=== PATIENT | female | born 1970 | race Caucasian/White ===

== ENCOUNTER → 2017-12-10 16:48 | Outpatient (REF) | payer OTHER, SELFPAY | LOC: NCHCN 16:48 | PROVIDERS: PCP Nurse Practitioner Family; Visit Provider Physician Assistant Medical | DX: R35.0 Frequency of micturition (principal) | CPT/HCPCS: 87086 ==

== ENCOUNTER 2019-02-09 17:03 | Outpatient (REF) | payer OTHER, SELFPAY | END 2019-02-09 17:23 | LOC: NCHCN 17:03 | PROVIDERS: PCP Nurse Practitioner Family; Visit Provider Nurse Practitioner Family | DX: R35.0 Frequency of micturition (principal) | CPT/HCPCS: 87086 ==

== ENCOUNTER 2019-10-20 02:18 | Outpatient (CLI) | payer OTHER, SELFPAY ==
--- NOTE | 2019-10-20 16:03 | DI.MAMMO_ITS ---
EXAM: MG MAMMO SCREENING CLINICAL HISTORY: SCREENING, [facility] Z00.00 TECHNIQUE: Bilateral full field digital CC and MLO mammographic images were obtained with 3D tomosyn thesis and utilizing computer aided detection (CAD). COMPARISON: Available for comparison. FINDINGS: Masses/Architectural Distortion: None seen. Microcalcifications: No suspicious pleomorphic-type are seen. Skin Thickening/Nipple Retraction: None. IMPRESSION: 1. No significant interval change with no specific features of malignancy noted. 2. Unless there is more urgent need, screening mammography is recommended, as per [employer] guidelines. BI-RADS Category 1 - Negative Breast Density - Category B - Scattered areas of fibroglandular density A negative radiographic report should not delay biopsy if a dominant or clinically suspicious mass is present. Up to ten percent of cancers are not identified on mammography. A negative report may reinforce clinical impression. Adenosis and dense breasts may obscure an underlying neoplasm. False positive reports average 6 to 10%. Patient will receive a letter notifying them of these results.
== END 2019-10-20 02:38 ==
PROVIDERS: PCP Nurse Practitioner Family; Visit Provider Nurse Practitioner Family
DX: Z00.00 Encounter for general adult medical examination without abnormal findings (principal); Z12.31 Encounter for screening mammogram for malignant neoplasm of breast
CPT/HCPCS: 77063; 77067

== ENCOUNTER 2019-12-14 17:23 | Outpatient (REF) | payer OTHER, SELFPAY ==
[2019-12-14 19:14] LABS: Anion Gap 9.8 mmol/L (3-11); BUN 19 mg/dL (7-18); CO2 27.2 mmol/L (21.0-32.0); CREATININE 1.05 mg/dL (0.55-1.02); Calcium 8.7 mg/dL (8.5-10.1); Chloride 101 mmol/L (98-107); Estimated GFR 55.48 (mL/min/1.73m2); Glucose 119 mg/dL (74-106); Potassium 4.6 mmol/L (3.5-5.1); Sodium 138 mmol/L (136-145)
== END 2019-12-14 17:43 ==
LOC: NCHCN 17:23
PROVIDERS: PCP Nurse Practitioner Family; Visit Provider Nurse Practitioner Family
DX: I10 Essential (primary) hypertension (principal); Z79.899 Other long term (current) drug therapy
CPT/HCPCS: 80048

== ENCOUNTER 2020-02-07 12:56 | Day surgery (SDC) | payer OTHER, SELFPAY ==
--- NOTE | 2020-02-07 06:59 | W.COLOREPORT ---
Date of service: 02/07/20 Time of Service: 14:15 Colonoscopy Report Date of procedure: 02/07/20 Pre-op diagnosis general: Colon Cancer Screening Post-op diagnosis procedure note: same Procedure: Colonoscopy Surgeon: Regina Funk Anesthesia proc note operative: other (General/ASA 2/Salvador Vidal, [facility]) Estimated blood loss (mL): 0 Pathology: none sent Complications: None Disposition: same day Indications: The patient is here for Colonoscopy pre-op. Her last screening was 20+ years ago. She has no family history of colon cancer. She has not had any bowel habit changes. -Discussed colonoscopy bowel prep as well as the procedure. Discussed possible complications of the procedure to include bleeding, pain, perforation, missed small lesion/polyp, sore throat, aspiration and adverse reaction to the medications. Questions were answered to patient?s satisfaction. No guarantees were implied or given. Prep: Miralax/Dulcolax Procedure Start Time: 14:15 Procedure End Time: 14:35 Retraction Time: 12 minutes Findings: Normal colon Procedure Description: After informed consent was obtained the patient was taken to the procedure room and placed in a left decubitous position. Monitors were applied and a time out was done. The patients name, date of , procedure, allergies to medications and metal in their body was reviewed. The patient was then sedated. Once sedated and comfortable a rectal exam was done. External exam was normal. Internal exam revealed a normal sphincter tone and no palpable masses. The scope was then introduced and retro-flexed. No internal hemorrhoids were identified. The scope was then advanced to the cecum without difficulty. The ileocecal valve and appendiceal orifice were identified. The prep was adequate. The scope was then slowly retracted over 12 minutes back into the rectum. There were no polyps or diverticula noted. The scope was removed and the patient was woken up and taken back to Same day surgery in stable condition. The patient tolerated the procedure well and there were no immediate complications. Follow up: The patient should follow up in 10 years unless they develop changes in bowel habits or other new gastrointestinal complaints.
--- NOTE | 2020-02-07 07:00 | W.PM.DSUDISC ---
Discharge Plan Disposition Patient Disposition: HOME Condition: Good Discharge Details Reason For Visit: Colonoscopy Attending Provider: Regina Funk Primary Care Provider: Bonnie Jamil Home Meds and New Rx's Prescriptions: Continued lisinopril 10 mg tablet 10 mg PO DAILY RF: 0 multivitamin [Daily Multi-Vitamin] Tablet 1 tab PO DAILY RF: 0 naproxen sodium [Aleve] 220 mg capsule 220 mg PO BID PRNRF: 0 ascorbic acid (vitamin C) 500 mg capsule 500 mg PO DAILY RF: 0 sqlz-cegizr-tlpspndz-D3-C-Mn 500-400-667 mg-mg-unit capsule 1 cap PO DAILY RF: 0 CBD cream 200 mg topical RF: 0 citalopram 10 mg tablet 20 mg PO DAILY RF: 0 estradiol [Vagifem] 10 mcg tablet 10 mcg VG DAILY RF: 0 omeprazole 20 mg capsule,delayed release(DR/EC) 20 mg PO BID RF: 0 Discontinued polyethylene glycol 3350 17 gram/dose powder 238 g PO ONCE Qty: 238 RF: 0 bisacodyl [Dulcolax (bisacodyl)] 5 mg tablet,delayed release (DR/EC) 5 mg PO ONCE Qty: 4 RF: 0 Discharge Instructions Additional Instructions: Findings: normal Follow up: 10 years Please call if you develop: fevers >101.5 Nausea or Vomiting Abdominal pain that is not transient DAY SURGERY UNIT POST ENDOSCOPY INSTRUCTIONS 1. Because there will be medication in your system for the next 24 hours, you may feel a little sleepy. Your coordination will be affected. Therefore: a. Do not drive or operate dangerous equipment for 24 hours. b. Do not drink alcohol beverages for 24 hours (not even beer). c. Plan to go home and rest for the day. 2. Generally there are no restrictions on your activity after a day or so has gone by, but you may feel a bit fatigued for a few days. 3 After you arrive home you may have a light meal and return to a normal diet as you can tolerate it without feeling sick to your stomach. 4. After surgery, you may feel pain or discomfort. This should be only transient, but if it persists please contact your doctor. 5. If there are any questions regarding the findings of your procedure, please feel free to contact your doctor. 6. If you are unable to contact your doctor with a problem, contact the hospital at [phone]. 7. Continue all your regular medications unless directed otherwise. I understand the above instructions and have no questions. Signature of Patient or Responsible Adult Escort Date/Time Name of Responsible Adult Escort Signature of Nurse Date/Time Activity:: Activity as Tolerated Diet:: As Tolerated Discharge Orders Discharge Orders: Discharge Order (Routine); Ordered 02/07/20 Ordered By: Regina Funk
[2020-02-07 13:24] VITALS: BP 124/84; PULSE 82; RESP 16; TEMP 36.2; O2SAT 98
[2020-02-07] MEDS: Lactated Ringers 1,000 ML 80 ML IV (13:36)
[2020-02-07 15:20] VITALS: BP 126/89; PULSE 67; RESP 16; TEMP 36.1; O2SAT 99
== END 2020-02-07 15:30 | disposition home or self-care (01) ==
PROVIDERS: PCP Nurse Practitioner Family; Visit Provider Surgery
PROC: 0DJD8ZZ Inspection of Lower Intestinal Tract, Via Natural or Artificial Opening Endoscopic (ICD-10-PCS; CPT 45378; principal; 2020-02-07 13:00)
DX: Z12.11 Encounter for screening for malignant neoplasm of colon (principal)
CPT/HCPCS: 45378; J2001

== ENCOUNTER 2020-10-04 16:19 | Outpatient (REF) | payer OTHER, SELFPAY ==
[2020-10-04 13:59] LABS: HCT 37.6 % (36.0-46.0); HGB 12.6 g/dL (11.2-15.7); MCH 29.9 pg (27.0-33.0); MCHC 33.5 % (32.0-36.0); MCV 89.3 fL (80-95); MPV 11.4 fL (8.0-11.0); Platelet Count 199 10^3/uL (130-400); RBC 4.21 10^6/uL (3.93-5.22); RDW 12.1 % (11.7-14.6); RDW-SD 39.8 fL; WBC 3.77 10^3/uL (4.4-10.8)
[2020-10-04 14:29] LABS: Anion Gap 9.7 mmol/L (3-11); BUN 20 mg/dL (7-18); CO2 27.3 mmol/L (21.0-32.0); CREATININE 0.8 mg/dL (0.55-1.02); Calcium 9.1 mg/dL (8.5-10.1); Calculated LDL 177 mg/dL (<100); Chloride 104 mmol/L (98-107); Cholesterol 261 mg/dL (<200); Glucose 96 mg/dL (74-106); HDL Cholesterol 69 mg/dL (40-60); Potassium 4.3 mmol/L (3.5-5.1); Sodium 141 mmol/L (136-145); TSH (W/Ref FT4) 1.43 uIU/mL (0.36-3.74); Triglyceride 75 mg/dL (<150)
[2020-10-05 01:16] LABS: Vitamin D 25 Total 85.3 ng/mL (30-100)
== END 2020-10-04 16:20 | disposition home or self-care (01) ==
LOC: NCHCN 16:19
PROVIDERS: PCP Nurse Practitioner Family; Visit Provider Nurse Practitioner Family
DX: Z00.00 Encounter for general adult medical examination without abnormal findings (principal); I10 Essential (primary) hypertension; R23.8 Other skin changes; F32.9 Major depressive disorder, single episode, unspecified
CPT/HCPCS: 80048; 80061; 82306; 85027; 84443

== ENCOUNTER 2020-10-25 14:47 | Outpatient (REF) | payer OTHER, SELFPAY ==
[2020-10-25 14:50] LABS: Abs Immature Grans 0.01 10^3/uL (0.0-0.06); Absolute Basophil Count 0.03 10^3/uL (0.0-0.2); Absolute Eosinophil Count 0.04 10^3/uL (0.0-0.7); Absolute Lymphocyte Count 1.52 10^3/uL (1.2-3.4); Absolute Monocyte Count 0.39 10^3/uL (0.1-0.8); Basophils % 0.7; Eosinophils % 0.9; HGB 12.9 g/dL (11.2-15.7); Immature Grans % 0.2; Lymphocytes % 35.4; MCH 30.1 pg (27.0-33.0); MCHC 33.1 % (32.0-36.0); MCV 91.1 fL (80-95); MPV 11.2 fL (8.0-11.0); Monocytes % 9.1; Neutrophils % 53.7; Platelet Count 196 10^3/uL (130-400); RBC 4.28 10^6/uL (3.93-5.22); RDW 12.2 % (11.7-14.6); RDW-SD 40.6 fL; WBC 4.29 10^3/uL (4.4-10.8)
== END 2020-10-25 14:48 | disposition home or self-care (01) ==
LOC: NCHCN 14:47
PROVIDERS: PCP Nurse Practitioner Family; Visit Provider Nurse Practitioner Family
DX: R89.8 Other abnormal findings in specimens from other organs, systems and tissues (principal)
CPT/HCPCS: 85027; 85007

== ENCOUNTER 2021-03-26 19:19 | Outpatient (REF) | payer OTHER, SELFPAY ==
[2021-03-28 22:14] LABS: COVID-19 RT-PCR UVMMC Result Positive (Negative)
== END 2021-03-26 19:20 | disposition home or self-care (01) ==
LOC: NCHCN 19:19
PROVIDERS: PCP Nurse Practitioner Family; Visit Provider Nurse Practitioner Family
DX: Z20.822 Contact with and (suspected) exposure to COVID-19 (principal); R05.8 Other specified cough
CPT/HCPCS: U0003

== ENCOUNTER → 2021-08-28 00:15 | Outpatient (CLI) | payer OTHER, SELFPAY ==
--- NOTE | 2021-08-28 09:30 | DI.RAD_ITS ---
Exam(s) XR WRIST RT COMPLETE EXAM: XR WRIST RT COMPLETE CLINICAL HISTORY: DAILY JOINT PAIN, M25.50, WORSE IN A.M.; FH RA, BORDERLINE RISK. TECHNIQUE: 2D digital imaging was performed. COMPARISON: CR XR HAND LT COMPLETE from 08/28/2021 CR XR WRIST LT COMPLETE from 08/28/2021 FINDINGS: 3 views No evidence of fracture or carpal dislocation. Scaphoid and scapholunate distance appear unremarkabl e. No significant ulnar variance. Bone density normal. No osseous lesions nor erosions. No obviou s degenerative changes. IMPRESSION: No significant radiographic findings. DATA REPOSITORY: RADIATION DOSE DELIVERED:
--- NOTE | 2021-08-28 09:30 | DI.RAD_ITS ---
Exam(s) XR HAND RT COMPLETE EXAM: XR HAND RT COMPLETE CLINICAL HISTORY: DAILY JOINT PAIN, M25.50, WORSE IN A.M.; FH RA, BORDERLINE RISK. TECHNIQUE: 2D digital imaging was performed. COMPARISON: CR XR HAND LT COMPLETE from 08/28/2021 FINDINGS: 3 views No evidence of fracture nor dislocation. Radiopaque. Lesions nor erosions. Bone density is age-ezequiel ropriate IMPRESSION: No significant radiographic findings. DATA REPOSITORY: RADIATION DOSE DELIVERED:
--- NOTE | 2021-08-28 09:30 | DI.RAD_ITS ---
Exam(s) XR HAND LT COMPLETE EXAM: XR HAND LT COMPLETE CLINICAL HISTORY: DAILY JOINT PAIN, M25.50, WORSE IN A.M.; FH RA, BORDERLINE RISK. TECHNIQUE: 2D digital imaging was performed. COMPARISON: No exams were available for comparison FINDINGS: 3 views No evidence of fracture or dislocation. No osseous lesions nor erosions. There is developmental fusion at the level of the distal carpal row between the capitate and trapezoi d bones. IMPRESSION: DATA REPOSITORY: RADIATION DOSE DELIVERED:
--- NOTE | 2021-08-28 09:30 | DI.RAD_ITS ---
Exam(s) XR WRIST LT COMPLETE EXAM: XR WRIST LT COMPLETE CLINICAL HISTORY: DAILY JOINT PAIN, M25.50, WORSE IN A.M.; FH RA, BORDERLINE RISK. TECHNIQUE: 2D digital imaging was performed. COMPARISON: CR XR HAND RT COMPLETE from 08/28/2021 FINDINGS: 3 views No evidence of fracture nor dislocation. No significant ulnar variance. Scaphoid appears unremarkab le. No widening of the scapholunate distance. Small benign cyst noted in the capitate. There appea rs to be developmental fusion of the trapezoid and capitate. No other interosseous fusion evident. IMPRESSION: There is developmental fusion of the capitate and trapezoid bones of the distal carpal row. No other fusions evident. No obvious degenerative changes nor erosions. DATA REPOSITORY: RADIATION DOSE DELIVERED:
== END ==
PROVIDERS: PCP Nurse Practitioner Family; Visit Provider Nurse Practitioner Family
DX: M25.531 Pain in right wrist (principal); M25.532 Pain in left wrist; M24.632 Ankylosis, left wrist; M79.641 Pain in right hand; M79.642 Pain in left hand
CPT/HCPCS: 73110; 73130

== ENCOUNTER 2021-08-28 19:45 | Outpatient (REF) | payer OTHER, SELFPAY ==
[2021-08-28 17:36] LABS: Abs Immature Grans 0.01 10^3/uL (0.0-0.06); Absolute Basophil Count 0.02 10^3/uL (0.0-0.2); Absolute Eosinophil Count 0.05 10^3/uL (0.0-0.7); Absolute Lymphocyte Count 1.57 10^3/uL (1.2-3.4); Absolute Neutrophil Count 1.82 10^3/uL (1.2-6.7); Basophils % 0.5; Eosinophils % 1.3; HCT 39.3 % (36.0-46.0); HGB 12.7 g/dL (11.2-15.7); Immature Grans % 0.3; Lymphocytes % 41.6; MCHC 32.3 % (32.0-36.0); MCV 93 fL (80-95); MPV 11.3 fL (8.0-11.0); Neutrophils % 48.3; Platelet Count 206 10^3/uL (130-400); RBC 4.24 10^6/uL (3.93-5.22); RDW 12.1 % (11.7-14.6); RDW-SD 41.5 fL; WBC 3.77 10^3/uL (4.4-10.8)
[2021-08-28 17:39] LABS: ESR 7 mm/hr (0-30)
[2021-08-28 20:30] LABS: Anion Gap 10.2 mmol/L (3-11); BUN 16 mg/dL (7-18); CO2 26.8 mmol/L (21.0-32.0); CREATININE 0.8 mg/dL (0.55-1.02); Calcium 8.7 mg/dL (8.5-10.1); Calculated LDL 169 mg/dL (<100); Chloride 104 mmol/L (98-107); Cholesterol 256 mg/dL (<200); Glucose 93 mg/dL (74-106); HDL Cholesterol 69 mg/dL (40-60); Potassium 4.2 mmol/L (3.5-5.1); Sodium 141 mmol/L (136-145); Triglyceride 94 mg/dL (<150)
[2021-08-28 20:51] LABS: C-Reactive Protein 0.11 mg/dL (0.0-0.3)
[2021-08-29 17:24] LABS: Rheumatoid Factor <8.6 IU/mL (<12.0)
[2021-08-30 09:11] LABS: Cyclic Citrullinated Peptide <2.5 U/mL (<5.0)
[2021-08-30 12:00] LABS: ANCA Interpretation Negative (Negative)
[2021-08-30 12:10] LABS: ANA Interpretation Positive (Negative); ANA Titer Pattern 1:160 Speckled
== END 2021-08-28 19:46 | disposition home or self-care (01) ==
LOC: NCHCN 19:45
PROVIDERS: PCP Nurse Practitioner Family; Visit Provider Nurse Practitioner Family
DX: Z00.00 Encounter for general adult medical examination without abnormal findings (principal); F32.9 Major depressive disorder, single episode, unspecified; I10 Essential (primary) hypertension; K21.9 Gastro-esophageal reflux disease without esophagitis; M25.59 Pain in other specified joint
CPT/HCPCS: 80048; 80061; 85652; 86200; 86255; 85025; 86038; 86140; 86431

== ENCOUNTER → 2021-10-26 00:02 | Outpatient (CLI) | payer OTHER, SELFPAY ==
--- NOTE | 2021-10-26 | DI.MAMMO_ITS ---
Exam(s) MAMMO SCREENING EXAM: MAMMO SCREENING CLINICAL HISTORY: SCREENING FOR BREAST CA, Z12.39 TECHNIQUE: Mammograms were interpreted according to the usual protocol including computer analysis w [employer] CAD system, tomosynthesis and C-view imaging. COMPARISON: 2011 through 2019 FINDINGS: The breasts are composed of scattered fibroglandular densities, Breast Density category B. No suspicious masses or suspicious microcalcifications are seen. No skin thickening or abnormal axillary lymph nodes are seen. There has been no significant change from prior exams. IMPRESSION: BI-RADS Category 1, Negative mammogram Yearly screening mammography is recommended. Breast Density - Category B, scattered fibroglandular densities. A negative radiographic report should not delay biopsy if a dominant or clinically suspicious mass is present. Up to ten percent of cancers are not identified on mammography. A negative report may reinforce clinical impression. Adenosis and dense breasts may obscure an underlying neoplasm. False positive reports average 6 to 10%. Patient will receive a letter notifying them of these results.
== END ==
PROVIDERS: PCP Nurse Practitioner Family; Visit Provider Nurse Practitioner Family
DX: Z12.31 Encounter for screening mammogram for malignant neoplasm of breast (principal)
CPT/HCPCS: 77063; 77067

== ENCOUNTER 2022-02-26 15:19 | Outpatient (REF) | payer OTHER, SELFPAY ==
[2022-02-26 15:12] LABS: ESR 19 mm/hr (0-30)
[2022-02-26 15:31] LABS: Cholesterol 255 mg/dL (<200)
[2022-02-26 15:35] LABS: C-Reactive Protein 1.29 mg/dL (0.0-0.3)
[2022-02-27 09:06] LABS: Calculated LDL 170 mg/dL (<100); HDL Cholesterol 66 mg/dL (40-60); Triglyceride 97 mg/dL (<150)
== END 2022-02-26 15:20 | disposition home or self-care (01) ==
LOC: NCHCN 15:19
PROVIDERS: PCP Nurse Practitioner Family; Visit Provider Nurse Practitioner Family
DX: E78.9 Disorder of lipoprotein metabolism, unspecified (principal); M25.59 Pain in other specified joint
CPT/HCPCS: 80061; 85652; 82465; 86140

== ENCOUNTER 2022-08-13 12:50 | Outpatient (REF) | payer OTHER, SELFPAY ==
[2022-08-13 15:34] LABS: Hemoglobin A1C 5.7 % (<5.7)
[2022-08-13 16:08] LABS: Vitamin D 25 Total 86.7 ng/mL (30-100)
[2022-08-13 16:14] LABS: TSH 1.26 uIU/mL (0.36-3.74); Vitamin B12 777 pg/mL (193-986)
== END 2022-08-13 12:51 | disposition home or self-care (01) ==
LOC: NCHCN 12:50
PROVIDERS: PCP Nurse Practitioner Family; Visit Provider Nurse Practitioner Family
DX: R53.83 Other fatigue (principal); R89.9 Unspecified abnormal finding in specimens from other organs, systems and tissues; I10 Essential (primary) hypertension; Z79.899 Other long term (current) drug therapy
CPT/HCPCS: 82306; 82607; 83036; 84443

== ENCOUNTER 2022-08-13 12:55 | Outpatient (CLI) | payer OTHER, SELFPAY ==
--- NOTE | 2022-08-13 | DI.RAD_ITS ---
Exam(s) XR KNEE LT 3V AP,LAT,THALIA EXAM: XR KNEE LT 3V AP,LAT,THALIA CLINICAL HISTORY: LT KNEE PERSISTENT POSTERIOR PAIN, M25.562, S/P INJURY LAST NOVEMBER. TECHNIQUE: 2D digital imaging was performed of the left knee. Three images were obtained. AP, late ral and PA tunnel views were obtained. COMPARISON: No exams were available for comparison FINDINGS: BONES: No acute fracture is present. No bony destructive lesion is seen. There is an enthesophyte at the superior patella. JOINTS: The knee is normally aligned. No joint effusion is seen. SOFT TISSUE: Normal. IMPRESSION: Normal radiographs of the left knee. DATA REPOSITORY: RADIATION DOSE DELIVERED:
== END 2022-08-13 13:15 ==
PROVIDERS: PCP Nurse Practitioner Family; Visit Provider Nurse Practitioner Family
DX: M25.562 Pain in left knee (principal)
CPT/HCPCS: 73562

== ENCOUNTER 2023-03-12 10:16 | Outpatient (REF) | payer OTHER, SELFPAY ==
--- OUTSIDE RECORDS SUMMARY | 2023-03-12 10:18 | XMS_ITS | Patient Health Record ---
Author Name Unknown [facility] Address [address] [place] [address] Care Team Providers Care Visual Education Director Name Role Phone ALEKSANDRA HERNANDEZ Primary Care Provider Unavailabl e ALLERGIES Allergen (clinical drug ingredient) Drug/Non Drug Allergy documented on EMR Reaction Allergy Type Onset Date Status Substance with sulfonamide structure and antibacterial mechanism of action (substance) Sulfa (uncoded) hives Allergy Active drospirenone / ethinyl estradiol RAJ Unknown Drug Allergy Active REASON FOR REFERRAL No Information MEDICATIONS Medication SIG (Take, Route, Frequency, Duration) Notes Start Date End Date Status Elderberry 575 MG/5ML as directed Orally Active Diclofenac Sodium 75 MG 1 tablet with food or milk Orally Twice a day for 30 day(s) Active Glucosamine Chond Complex/MSM - as directed Orally Active Triamcinolone Acetonide 0.1 % 1 application Externally Twice a day Active Aleve 220 MG 1 tablet with food or milk as needed Orally every 12 hrs Active -CIPRO 250 mg 1 tab Oral bid for 7 day(s) STOP*please review for potential _update for e-prescription and drug interaction check* 06/05/2007 Not-Taking MULTIVITAMIN Multiple Vitamins 1 cap(s) orally once a day for 30 day(s) Active Omeprazole 20 MG 1 capsule 30 minutes before morning meal Orally Once a day for 30 day(s) Active Citalopram Hydrobromide 10 MG 1 tablet Orally Once a day for 30 day(s) Active -OTC, HERBALS Varies Per patient CBD CREAM 3 x a day Active Vagifem 10 MCG 1 tablet Vaginal Two times a Week for 30 day(s) Active IMMUNIZATIONS Vaccine Route Administration Date Status Comme nts Td TETANUS DIPTHERIA ADULT NON-STATE Unknown 10/04/1994 Administered [place] includes admin [id number] Unknown 10/04/1994 Adminis tered negative SOCIAL HISTORY Tobacco Use: Social History Observation Description Date Details (start date - stop date) Never Smoker NA - NA Sex Assigned At : Social History Observation Description Sex Assigned At Unknown SMOKING Question Answer Notes Are you a: nonsmoker PLAN OF TREATMENT No Information Insurance Providers Payer Name Payer Address Payer Phone Subscriber Number Group Number Insured Name Patient Relationship to Insured Coverage Start Date Coverage End Date [employer] [facility] [address] [place], [place] [phone] [id number] NOEMI HACKETT Self - patient is the insured [place] [address] NOEMI HACKETT Self - patient is the insured MEDICATIONS ADMINISTERED Medication Instructions Date of Administration Dosage Notes N.CL,allergy>1 (46096) 09/17/2005 N.CL,allergy>1 (33643) 09/25/2005 .30 mL MEDICAL (GENERAL) HISTORY Medical History History ICD Code depression cat scratch fever - 02/22 cis form signed 06/03/07 TA CIS 05/29 - DPR Back pain M54.9 Urinary incontinence R32 Vaginal dryness N89.8 Fatigue R53.83 Raynaud disease I73.00 Shoulder pain M25.519 Seborrheic dermatitis L21.9 Bartonellosis, 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
[2023-03-12 19:09] LABS: Calculated LDL 149 mg/dL (<100); Cholesterol 240 mg/dL (<200); HDL Cholesterol 73 mg/dL (40-60); Triglyceride 93 mg/dL (<150)
== END 2023-03-12 10:17 | disposition home or self-care (01) ==
LOC: NCHCN 10:16
PROVIDERS: PCP Nurse Practitioner Family; Visit Provider Nurse Practitioner Family
DX: Z13.220 Encounter for screening for lipoid disorders (principal)
CPT/HCPCS: 80061

== ENCOUNTER → 2023-09-08 02:10 | Outpatient (CLI) | payer OTHER, SELFPAY ==
--- NOTE | 2023-09-08 | DI.MAMMO_ITS ---
Exam(s) MAMMO SCREENING EXAM: MAMMO SCREENING CLINICAL HISTORY: SCREENING, Z12.31. TECHNIQUE: Bilateral full field digital CC and MLO mammographic images were obtained with 3D tomosyn thesis and utilizing computer aided detection (CAD). COMPARISON: Prior mammograms were reviewed. FINDINGS: There has been no significant change in the appearance and distribution of the fibroglandular tissue. There are no new spiculated masses nor malignant appearing microcalcification groups. There is no significant architectural distortion nor skin thickening-retraction. IMPRESSION: No radiographic evidence of malignancy. BI-RADS Category 1 - Negative Breast Density - Category B - Scattered areas of fibroglandular density Breast density Category C or D implies that the patient has dense breast tissue. Dense breast tissue can make it harder to find cancer on a mammogram. Dense breast tissue is also associated with an incr eased risk of breast cancer. This information about the result of the mammogram report was provided to the patient to raise their awareness. Use this report when you speak with the patient about their risks for breast cancer, which includes their family history. At that time, you may recommend additional screening tests (Ultrasoun d or MRI) as these tests may add significant information. A negative radiographic report should not delay biopsy if a dominant or clinically suspicious mass is present. Up to ten percent of cancers are not identified on mammography. A negative report may reinforce clinical impression. Adenosis and dense breasts may obscure an underlying neoplasm. False positive reports average 6 to 10%. Patient will receive a letter notifying them of these results.
== END ==
PROVIDERS: PCP Nurse Practitioner Family; Visit Provider Nurse Practitioner Family
DX: Z12.31 Encounter for screening mammogram for malignant neoplasm of breast (principal)
CPT/HCPCS: 77063; 77067

== ENCOUNTER 2024-02-09 16:05 | Outpatient (CLI) | payer OTHER, SELFPAY ==
--- NOTE | 2024-02-09 | DI.RAD_ITS ---
Exam(s) XR FOOT RT COMPLETE EXAM: XR FOOT RT COMPLETE CLINICAL HISTORY: M79.671 Pain in rt foot. TECHNIQUE: 2D digital imaging was performed of the right foot. Three images were obtained. AP, obl ique and lateral views were obtained. COMPARISON: No exams were available for comparison FINDINGS: BONES: No acute fracture is present. No bony destructive lesion is seen. There is an enthesophyte at the posterior calcaneus. JOINTS: No dislocation present. Joint spaces are well maintained. SOFT TISSUE: Normal. IMPRESSION: No acute abnormality. DATA REPOSITORY: RADIATION DOSE DELIVERED:
== END 2024-02-09 16:25 ==
PROVIDERS: Visit Provider Nurse Practitioner Family
DX: M79.671 Pain in right foot (principal)
CPT/HCPCS: 73630

== ENCOUNTER 2024-03-09 01:52 | Outpatient (CLI) | payer OTHER, SELFPAY ==
--- NOTE | 2024-03-09 10:49 | DI.RAD_ITS ---
Exam(s) XR FOOT RT COMPLETE EXAM: XR FOOT RT COMPLETE CLINICAL HISTORY: Second and third metatarsal pain/? Stress fracture,PAIN RT FOOT,M79.671,. TECHNIQUE: 2D digital imaging was performed. Three views. COMPARISON: CR XR FOOT RT COMPLETE from 02/09/2024 FINDINGS: BONES: Nondisplaced fracture noted at distal 3rd medic tarsal with surrounding callus formation. No additional fractures. No bony destructive lesion is seen. Tiny enthesophyte at Achilles insertion. JOINTS: No dislocation present. No significant degenerative changes. Plantar arch is maintained. SOFT TISSUE: Normal. IMPRESSION: Subacute nondisplaced fracture of the distal 3rd metatarsal. DATA REPOSITORY: RADIATION DOSE DELIVERED:
== END 2024-03-09 02:12 ==
LOC: DI 01:52
PROVIDERS: PCP Nurse Practitioner Family; Visit Provider Podiatrist
DX: M84.374D Stress fracture, right foot, subsequent encounter for fracture with routine healing (principal)
CPT/HCPCS: 73630

== ENCOUNTER 2024-03-24 01:17 | Outpatient (CLI) | payer OTHER, SELFPAY ==
--- NOTE | 2024-03-24 14:05 | DI.RAD_ITS ---
Exam(s) XR FOOT RT COMPLETE EXAM: XR FOOT RT COMPLETE CLINICAL HISTORY: ? healing,stress fx,m84.374a. TECHNIQUE: 2D digital imaging was performed of the right foot. Three images were obtained. AP, obl ique and lateral views were obtained. COMPARISON: CR XR FOOT RT COMPLETE from 02/09/2024 CR XR FOOT RT COMPLETE from 03/09/2024 FINDINGS: BONES: There has been no change in alignment of the healing 3rd metatarsal fracture. No bony destruc tive lesion is seen. There is a small enthesophyte at the posterior calcaneus. JOINTS: No dislocation present. SOFT TISSUE: Normal. IMPRESSION: Stable alignment of the healing 3rd metatarsal fracture. DATA REPOSITORY: RADIATION DOSE DELIVERED:
== END 2024-03-24 01:37 ==
LOC: DI 01:17
PROVIDERS: PCP Nurse Practitioner Family; Visit Provider Podiatrist
DX: M84.374D Stress fracture, right foot, subsequent encounter for fracture with routine healing (principal); X58.XXXD Exposure to other specified factors, subsequent encounter
CPT/HCPCS: 73630

== ENCOUNTER 2024-05-07 00:36 | Outpatient (CLI) | payer OTHER, SELFPAY ==
--- NOTE | 2024-05-07 07:00 | DI.DEXA_ITS ---
Exam(s) XR DEXA BONE DENSITY W/WO DIEGO EXAM: XR DEXA BONE DENSITY W/WO DIEGO CLINICAL HISTORY: ? osteoporosis, hysterectomy 2002,STRESS FX METATARSAL BONE RT FOOT,m84.374 TECHNIQUE: Ech[employer] Horizon C densitometer analysis of left hip, lumbar spine and left forearm. Lat eral survey image of the thoracic and lumbar spine. COMPARISON: No exams were available for comparison FINDINGS: Lateral view of the thoracic and lumbar spine shows no evidence of compression fractures. Bone mineral density measurements of the lumbar spine correspond to a total T-score of -1.7, in the osteopenic range. Bone mineral density measurements of the left hip correspond to a total T-score of -1.0. The femora l neck T-score is -0.8, in the normal range.. Theleft forearm bone mineral density measurements correspond to a T-score of the distal 3rd of 0.1, in the normal range.. IMPRESSION: Osteopenia of the spine. Low normal bone mineral density of the hip. Normal bone density of the for earm.
== END 2024-05-07 00:56 ==
LOC: DI 00:36
PROVIDERS: PCP Nurse Practitioner Family; Visit Provider Nurse Practitioner Family
DX: M85.89 Other specified disorders of bone density and structure, multiple sites (principal)
CPT/HCPCS: 77080

== ENCOUNTER 2024-06-07 01:05 | Outpatient (CLI) | payer OTHER, SELFPAY ==
--- NOTE | 2024-06-07 06:30 | DI.RAD_ITS ---
Exam(s) XR FOOT RT COMPLETE EXAM: XR FOOT RT COMPLETE CLINICAL HISTORY: ? consolidated,f/u stress fx metatarsal bone,M84.374A. TECHNIQUE: 2D digital imaging was performed of the right foot. Three images were obtained. AP, obl ique and lateral views were obtained. COMPARISON: CR XR FOOT RT COMPLETE from 03/24/2024 FINDINGS: BONES: There is been further remodeling of the fracture of the 3rd metatarsal bone. There is been co ntinued healing. No new fracture is seen. There is an enthesophyte at the posterior calcaneus. No bony destructive lesion is seen. JOINTS: No dislocation present. SOFT TISSUE: Normal. IMPRESSION: Continued remodeling and healing of the fracture involving the 3rd metatarsal bone. No change in ali gnment of the fracture is seen. DATA REPOSITORY: RADIATION DOSE DELIVERED:
== END 2024-06-07 01:25 ==
LOC: DI 01:05
PROVIDERS: PCP Nurse Practitioner Family; Visit Provider Podiatrist
DX: M84.374A Stress fracture, right foot, initial encounter for fracture (principal)
CPT/HCPCS: 73630

== ENCOUNTER 2024-06-16 03:19 | Outpatient (CLI) | payer OTHER, SELFPAY ==
[2024-06-16 17:05] LABS: Anion Gap 6.7 mmol/L (3-11); BUN 15 mg/dL (7-18); CO2 30.3 mmol/L (21.0-32.0); CREATININE 0.9 mg/dL (0.55-1.02); Calcium 9.4 mg/dL (8.5-10.1); Calculated LDL 171 mg/dL (<100); Chloride 103 mmol/L (98-107); Cholesterol 265 mg/dL (<200); Estimated GFR 75.97 (mL/min/1.73m2); Glucose 84 mg/dL (74-106); HDL Cholesterol 80 mg/dL (40-60); Potassium 3.9 mmol/L (3.5-5.1); Sodium 140 mmol/L (136-145); Triglyceride 74 mg/dL (<150)
== END 2024-06-16 03:20 | disposition home or self-care (01) ==
LOC: LBO 03:19
PROVIDERS: PCP Nurse Practitioner Family; Visit Provider Nurse Practitioner Family
DX: Z00.00 Encounter for general adult medical examination without abnormal findings (principal); R73.03 Prediabetes; Z79.899 Other long term (current) drug therapy
CPT/HCPCS: 36415; 80048; 80061

== ENCOUNTER 2024-07-21 08:46 | Outpatient (REF) | payer OTHER, SELFPAY | END 2024-07-21 08:47 | disposition home or self-care (01) | LOC: LBN 08:46 | PROVIDERS: PCP Nurse Practitioner Family; Visit Provider Nurse Practitioner Family | DX: Z12.4 Encounter for screening for malignant neoplasm of cervix (principal); Z11.51 Encounter for screening for human papillomavirus (HPV) | CPT/HCPCS: 88142; 87624 ==

== ENCOUNTER 2024-08-12 02:14 | Outpatient (CLI) | payer OTHER, SELFPAY ==
[2024-08-12 11:33] LABS: TSH (W/Ref FT4) 1.85 uIU/mL (0.36-3.74)
[2024-08-17 17:23] LABS: Apolipoprotein B, Serum 137 mg/dL (48-124); Beta VLDL Cholesterol Not Detected mg/dL (<15); Beta VLDL Triglycerides Not Detected mg/dL (<15); Cholesterol, Total, CDC 279 mg/dL; Chylomicron Cholesterol Not Detected; Chylomicron Triglycerides Not Detected; HDL Cholesterol, CDC 60 mg/dL (>=50); LDL Cholesterol 193 mg/dL; LDL Triglycerides 38 mg/dL (<=50); Lp(a) Cholesterol <5 mg/dL (<5); LpX Not detected; Triglycerides, CDC 103 mg/dL; VLDL Cholesterol 26 mg/dL (<30); VLDL Triglycerides 50 mg/dL (<120)
== END 2024-08-12 02:15 | disposition home or self-care (01) ==
LOC: LBO 02:14
PROVIDERS: Absent Provider Nurse Practitioner Family; PCP Nurse Practitioner Family; Referring Provider Nurse Practitioner Family; Visit Provider Nurse Practitioner Family
DX: Z00.00 Encounter for general adult medical examination without abnormal findings (principal); R53.83 Other fatigue
CPT/HCPCS: 36415; 80061; 82172; 82664; 84443

== ENCOUNTER 2024-10-07 00:31 | Outpatient (CLI) | payer OTHER, SELFPAY ==
--- NOTE | 2024-10-07 08:30 | DI.MAMMO_ITS ---
Exam(s) MAMMO SCREENING EXAM: MAMMO SCREENING CLINICAL HISTORY: SCREENING, Z12.39 TECHNIQUE: Bilateral full field digital CC and MLO mammographic images were obtained with 3D tomosynthesis and utilizing computer aided detection (CAD). COMPARISON: Comparison is made with prior examinations. FINDINGS: Masses/Architectural Distortion: No suspicious masses or areas of architectural distortion are present. Microcalcifications: No suspicious pleomorphic-type are seen. Skin Thickening/Nipple Retraction: None. IMPRESSION: 1. No significant interval change with no specific features of malignancy noted. 2. Unless there is more urgent need, screening mammography is recommended, as per [employer] guidelines. BI-RADS Category 1 - Negative Breast Density - Category B - There are scattered areas of fibroglandular density. Breast density Category C or D implies that the patient has dense breast tissue. Dense breast tissue can make it harder to find cancer on a mammogram. Dense breast tissue is also associated with an increased risk of breast cancer. This information about the result of the mammogram report was provided to the patient to raise their awareness. Use this report when you speak with the patient about their risks for breast cancer, which includes their family history. At that time, you may recommend additional screening tests (Ultrasound or MRI) as these tests may add significant information. A negative radiographic report should not delay biopsy if a dominant or clinically suspicious mass is present. Up to ten percent of cancers are not identified on mammography. A negative report may reinforce clinical impression. Adenosis and dense breasts may obscure an underlying neoplasm. False positive reports average 6 to 10%. Patient will receive a letter notifying them of these results.
== END 2024-10-07 00:51 ==
LOC: DI 00:31
PROVIDERS: PCP Nurse Practitioner Family; Visit Provider Nurse Practitioner Family
DX: Z12.31 Encounter for screening mammogram for malignant neoplasm of breast (principal); R92.323 Mammographic fibroglandular density, bilateral breasts
CPT/HCPCS: 77063; 77067

== ENCOUNTER 2024-11-11 09:11 | Day surgery (SDC) | payer OTHER, SELFPAY ==
[2024-11-11 09:27] VITALS: BP 135/99; PULSE 79; RESP 16; TEMP 36.2; O2SAT 99
[2024-11-11] MEDS: Lactated Ringers 1,000 ML 80 ML IV (09:39)
--- NOTE | 2024-11-11 10:01 | W.ANESPRE ---
General Info Date of Service Date Performed: 11/11/24 Height: 5 ft 6 in Weight: 70 kg Body Mass Index (BMI): 24.9 Surgical Procedure: Operation Date: 11/11/24 11:35 Proposed Procedure Side Surgeon p Gastroscopy Ashtyn Jules MD Meds Allergies and Home Medications Allergies Allergy/AdvReac Type Severity Reaction Status Date / Time drospirenone (From [facility] ()) Allergy Mild Hives Verified 11/11/24 09:25 ethinyl estradiol (From [facility] Allergy Mild Hives Verified 11/11/24 09:25 (28)) Sulfa (Sulfonamide Allergy Mild Hives Verified 11/11/24 09:25 Antibiotics) Home Medication ?Medication ?Instructions ?Recorded glucosamine 500 1 cap PO DAILY 12/17/19 [id number] comp 400 mg-D3 667 unit-C-Mn cap multivitamin (Daily Multi-Vitamin 1 tab PO DAILY 12/17/19 tablet) cetirizine 10 mg tablet (Zyrtec) 10 mg PO DAILY PRN 03/24/24 Bone builder PO 07/21/24 rosuvastatin 5 mg tablet 5 mg PO DAILY 90 days #90 tabs 09/03/24 CBD Oil 20 mg topical 09/08/24 citalopram 20 mg tablet 20 mg PO DAILY #90 tabs 09/08/24 omeprazole 20 mg capsule,delayed 20 mg PO DAILY reflux #90 caps 09/08/24 release Current Visit Medications: Current Medications Generic Name Dose Route Start Last Admin Trade Name Freq PRN Reason Stop Dose Admin Ringer's Solution 1,000 mls @ 80 mls/hr 11/11/24 06:00 11/11/24 09:39 IV 11/11/24 23:59 80 mls/hr INFUSION DIONY Administration IV Miscellaneous Supplies 1 each 11/11/24 06:00 Iv Access IV 11/11/24 23:59 DIRECTED DIONY Sodium Chloride 0 ml 11/11/24 06:00 Normal Saline Flush 10 Ml Syr IV 11/11/24 23:59 PRN PRN Sodium Chloride 0 ml 11/11/24 06:00 Normal Saline 10 Ml Vial IJ 11/11/24 23:59 DIRECTED PRN Sterile Water 0 ml 11/11/24 06:00 Water,Injection,Sterile 10 Ml Vial IJ 11/11/24 23:59 DIRECTED PRN PFSH Active Problems Active Problems: Problem Status Onset Code Shoulder pain, right Acute M25.511 Drooling from right side of mouth Acute K11.7 Ward type 2a hyperlipoproteinemia Acute E78.00 Achilles tendon contracture, bilateral Acute M67.01, M67.02 Achilles tendinitis, right leg Acute M76.61 Plantar fasciitis Acute M72.2 Preventative health care Acute Z00.00 Pain in joint of left knee Acute M25.562 Pain, joint, shoulder, right Acute M25.511 Acquired absence of both cervix and uterus Acute Z90.710 Prediabetes Acute R73.03 Fatigue Acute R53.83 Pain in thoracic spine Acute M54.6 Disorder of connective tissue Acute M35.9 Gastroesophageal reflux disease without esophagitis Acute K21.9 Temporomandibular joint disorder Acute M26.609 Major depression Chronic F32.9 Melanocytic nevus Acute D22.9 Pain in right foot Acute M79.671 Stress fracture of metatarsal bone of right foot Acute M84.374A Foot pain, left Acute M79.672 Joint pain Acute M25.50 Raynauds disease Acute I73.00 Medical History Medical History Noninflammatory disorder of vagina Disorder of lipoprotein and lipid metabolism Elevated cholesterol Screening for breast cancer Medication management Abnormal finding on evaluation procedure Normal colonoscopy Acid reflux Shoulder joint pain Bartonellosis Seborrheic dermatitis Vaginal dryness Urinary, incontinence, stress female Back pain Depressed mood Hypertension Change in stool habits Surgical History Surgical History History of hysterectomy leaving cervix intact 09/16/[facility] H/O colonoscopy Tobacco Smoking/Tobacco Use Status: Never Alcohol Alcohol Intake: current Alcohol intake frequency: a few times a month Substance Use Substance use: Never Substance use type: does not use Vital Signs and Lab Results Vital Signs Most Recent Vital Signs in EMR: Most Recent Vital Signs Temp Pulse Resp BP Pulse Ox 36.2 C L 79 16 135/99 H 99 11/11/24 09:27 11/11/24 09:27 11/11/24 09:27 11/11/24 09:27 11/11/24 09:27 Anesthesia Assessment and Plan Anesthesia History Personal History: No History of Anesthesia Complications Family History: No Family History of Anesthesia Complications Exercise Tolerance Exercise Tolerance: Metabolic Equivalents>4 Cardiac & Pulmonary Exam Cardiac Exam: Normal S1/S2 Heart Sounds Pulmonary Exam: Clear Bilateral Breath Sounds Implantable Cardiac Device Does patient have a Pacemaker or an ICD?: No Airway Exam Known Difficult Airway: No Mallampati Class: 1 Mouth Opening: Normal (> 3cm) Thyromental Distance: Greater than 3 cm Neck Range of Motion: Full ROM Neck Circumference: Normal Teeth Condition: Normal Dentition ASA Classification ASA Score: ASA 2 Emergency Case?: No NPO Status NPO Status: NPO Clears >2 hours, Solids >8 hours Status Status: Negative HCG Anesthesia Plan Resuscitation Status: Full Code Anesthesia Technique: General Anesthesia Airway Planned: Natural Airway Monitors Used: Standard Monitors
[2024-11-11 10:06] VITALS: BMI 24.9
--- NOTE | 2024-11-11 10:35 | STOM_PTH ---
PATIENT: Kat Culver LOC: [facility] U#:[id number] AGE/SX: 53/F ROOM: RE11/11/[address]: Ashtyn Jules MD : [id number] BED: DIS: 11/11/2024 SPEC #: [id number] RECD: 11/11/24 13:09 STATUS: VANDA RECorbin #: [id number] ROWAN: 11/11/24 10:[address]: Ashtyn Jules DEPT: Surgical Specimen RECD BY: Rosario Mata ENTERED: 11/11/24 13:10 SP TYPE: STOMACH OTHR DR: Bonnie Jamil, CHANDLER Tissues: 1 - STOMACH BIOPSY 2 - ESOPHAGUS BIOPSY Procedures: GROSS AND MICRO LEVEL 4 Comments: [id number]
[2024-11-11 10:44] VITALS: BP 131/83; PULSE 81; RESP 18; TEMP 36; O2SAT 98
--- NOTE | 2024-11-11 10:45 | ENDO_ITS ---
Date of service: 11/11/24 Time of Service: 10:45 Endoscopy Report DATE OF PROCEDURE: 11/11/24 PRE-OP DIAGNOSIS: GERD, epigastric pain POST-OP DIAGNOSIS: other (GERD, epigastric pain, esophagitis) PROCEDURE: EGD with cold biopsy SURGEON: Ashtyn Jules ANESTHESIA TYPE: MAC ESTIMATED BLOOD LOSS: 1 PATHOLOGY: other (1. antrum. 2. distal esophagus) INDICATIONS: GERD, epigastric pain FINDINGS: Consent obtained. Endoscope inserted through the mouth to the second portion of the duodenum then withdrawn. Duodenum appears normal. Normal ampulla. Antrum appears normal. Given esophagitis noted, antrum biopsy obtained with cold forceps for H pylori testing. Fundus is normal. Cardia is normal. Scope was retroflexed and there is no evidence of hiatal hernia. GE junction is present at 38cm from the incisors. Z line is irregular with short projections of inflamed mucosa. Cold forceps biopsy obtained for microscopic assessment to rule out Barretts esophagus. Remainder of the esophagus is patent and normal. No complications. ASSESSMENT AND PLAN: Esophagitis noted on exam today. No hiatal hernia. Suspect symptoms are due to uncontrolled GERD and esophagitis. Recommend PPI use for 3 months to resolve esophagitis, followed by lifestyle and diet modification thereafter. no indication at this time for custodial PPI use. If esophageal biopsy shows barretts I will recommend custodial PPI and surveillance exams. Follow up H pyolori testing and notify patient for treatment if positive.
--- NOTE | 2024-11-11 10:56 | W.ANESPOSTOP ---
Postoperative Evaluation Date, Time and Location Date Performed: 11/11/24 Time Performed: 10:56 Patient Location: Day Surgery Unit Vital Signs Most Recent Imported Vital Signs: Most Recent Vital Signs Temp Pulse Resp BP Pulse Ox 36.0 C L 81 18 131/83 98 11/11/24 10:44 11/11/24 10:44 11/11/24 10:44 11/11/24 10:44 11/11/24 10:44 Pain Score Most Recent Pain Score: Most Recent Pain Score Pain Level 0 11/11/24 10:44 Assessment Mental Status: Awake (Alert & Oriented to Patient Baseline) Airway and Respiratory Function: Patent airway with normal (patient baseline) respiratory exam Cardiovascular Function: Hemodynamically Stable Hydration Status: Adequately Hydrated Nausea & Vomiting: No Nausea or Vomiting Pain: Pt. Denies Any Pain Peripheral Nerve Block: Patient did not receive a nerve block
--- NOTE | 2024-11-11 10:58 | W.PM.DSUDISC ---
Date of service: 11/11/24 Discharge Plan Disposition Patient Disposition: Home Condition: Stable Discharge Details Reason For Visit: EGD for GERD Attending Provider: Ashtyn Jules Primary Care Provider: Bonnie Jamil Home Meds and New Rx's Prescriptions: No Action Bone builder PO omeprazole 20 mg capsule,delayed release(DR/EC) 20 mg PO DAILY Qty: 90 0RF Rx Instructions: 1st thing in AM citalopram 20 mg tablet 20 mg PO DAILY Qty: 90 3RF cetirizine [Zyrtec] 10 mg tablet 10 mg PO DAILY PRN CBD Oil 20 mg topical rosuvastatin 5 mg tablet 5 mg PO DAILY 90 Days Qty: 90 4RF Rx Instructions: Take one 5 mg tablet by mouth once daily as directed. multivitamin [Daily Multi-Vitamin] Tablet 1 tab PO DAILY hulk-[id number]-fcshrrwl-D3-C-Mn 500-400-667 mg-mg-unit capsule 1 cap PO DAILY Discharge Instructions Instructions: Esophagitis, Acid reflux and GERD in adults Activity:: Activity as Tolerated Diet:: As Tolerated DS: Diagnosis Discharge Diagnosis (1) GERD with esophagitis: Status: Acute Asessment and Plan: EGD shows Esophagitis which is inflammation of the esophagus. No ulcers or severely damaged areas seen. No hiatal hernia. Suspect symptoms are due to uncontrolled reflux and esophagitis. Recommend consistent daily omeprazole use for 3 months to resolve the esophagitis, followed by lifestyle and diet modification thereafter. No indication at this time for intermediate manager or permanent omeprazole use, but I recommend short term 3 month course as noted. Biopsies taken to check for infection and microscopic esophagus damage. If esophageal biopsy shows Barretts esophagus (more severe damage) I will recommend intermediate manager medicine for you and more EGDs in the future. If your stomach sample shows infection with H pylori bacteria I will notify you for treatment. I will send you a letter when your results are back.
[2024-11-11 11:19] VITALS: BP 141/90; PULSE 59; RESP 16; TEMP 36; O2SAT 100
== END 2024-11-11 11:36 | disposition home or self-care (01) ==
PROVIDERS: PCP Nurse Practitioner Family; Visit Provider Surgery
PROC: 0DJ68ZZ Inspection of Stomach, Via Natural or Artificial Opening Endoscopic (ICD-10-PCS; CPT 43235; principal; 2024-11-11 11:30)
DX: K21.00 Gastro-esophageal reflux disease with esophagitis, without bleeding (principal); R10.13 Epigastric pain; K22.89 Other specified disease of esophagus
CPT/HCPCS: 43239; 88305; J2003; J2704

== ENCOUNTER 2024-12-08 02:59 | Outpatient (CLI) | payer OTHER, SELFPAY ==
[2024-12-13 17:23] LABS: Apolipoprotein B, Serum 88 mg/dL (48-124); Beta VLDL Cholesterol Not Detected mg/dL (<15); Beta VLDL Triglycerides Not Detected mg/dL (<15); Cholesterol, Total, CDC 198 mg/dL; Chylomicron Cholesterol Not Detected; Chylomicron Triglycerides Not Detected; HDL Cholesterol, CDC 65 mg/dL (>=50); Interpretation Normal; LpX Not detected; Triglycerides, CDC 102 mg/dL; VLDL Triglycerides 59 mg/dL (<120)
== END 2024-12-08 03:00 | disposition home or self-care (01) ==
LOC: LBO 02:59
PROVIDERS: PCP Nurse Practitioner Family; Visit Provider Nurse Practitioner Family
DX: E78.00 Pure hypercholesterolemia, unspecified (principal)
CPT/HCPCS: 36415; 80061; 82172; 82664